=== PATIENT | female | born 1945 | race Caucasian/White ===

== ENCOUNTER → 2018-08-28 | Outpatient (CLI) | payer MEDICARE, OTHER ==
[~2018-08-28] MED LIST: ALBUIS; AMLO5; ASPI81CH; ASPI81EC PO; ATOR20 PO; ATOR40TA PO; Amlodipine Bes2.5 MG; CARV6.25 PO; CHOL10002; CHOL10002 PO; CLIN300 PO; CLON.1; CLON.1 PO; Carvedilol12.5 MG; Crutch1 EACH MISC; DOCU100; DOCU100 PO; DULO30; DULO60; DULO60 PO; FURO40; FURO40 PO; GABA300; GABA300 PO; HYDACE5325 PO; HYDR-86; HYDRA25 PO; LEVFLO500; LISI20 PO; LISI5 PO; NICO14TP TOP; Norco 5-325 Ta1 EACH PO; OXYACE5T; PRED20; Prednisone20 MG PO; TOPI25 PO; TOPI50; Zestril40 MG
[2018-08-28 18:22] LABS: Creatinine, Urine Random 21.2 mg/dL (27.00-270.00); Protein, Urine Random 8.9 mg/dL (0.0-11.9)
[2018-08-28 19:47] LABS: Bacteria Few /hpf; Red Blood Cells, Urine 0-2 /hpf (0-2); Squamous Epithelial Cells Few /hpf (Few); White Blood Cells, Urine 0-2 /hpf (0-5)
== END | disposition home or self-care (01) ==
LOC: LAB SHORT 17:09 → LAB 17:09
PROVIDERS: Internal Medicine
DX: N18.3 Chronic kidney disease, stage 3 (moderate) (principal)
CPT/HCPCS: 81015; 82570; 84156

== ENCOUNTER 2019-09-06 17:45 | Emergency (ER) | payer MEDICARE, OTHER ==
[~2019-09-06] VITALS: Ht 154.9 cm; Wt 68.0 kg
[~2019-09-06 17:45] MED LIST changes: -AMLO5; +AMLO5 PO; -ASPI81CH; +ASPI81CH PO
[2019-09-06 18:27] LABS: BASOPHILS ABSOLUTE AUTO 0.09 K/mm3 (0.00-0.23); BASOPHILS PERCENT AUTO 1 % (0-2); EOSINOPHILS ABSOLUTE AUTO 0.26 K/mm3 (0.00-0.68); EOSINOPHILS PERCENT AUTO 2 % (0-6); Hematocrit 41.1 % (33.0-51.0); Hemoglobin 13.1 g/dL (11.5-16.0); IMMATURE GRAN ABSOLUTE AUTO 0.11 K/mm3 (0.00-0.10); IMMATURE GRAN PERCENT AUTO 1 % (0-1); LYMPHOCYTES ABSOLUTE AUTO 2.19 K/mm3 (0.84-5.20); LYMPHOCYTES PERCENT AUTO 14 % (21-46); MONOCYTES ABSOLUTE AUTO 0.98 K/mm3 (0.16-1.47); MONOCYTES PERCENT AUTO 6 % (4-13); Mean Corpuscular HGB 31.2 pg (26.0-34.0); Mean Corpuscular HGB Conc 31.9 g/dL (31.5-36.5); Mean Corpuscular Volume 98 fL (80-100); NEUTROPHILS ABSOLUTE AUTO 12.04 K/mm3 (1.96-9.15); NEUTROPHILS PERCENT AUTO 77 % (41-73); Platelet Count 199 K/mm3 (150-400); RDW Coefficient Variation 13.9 % (11.7-14.2); RDW Standard Deviation 49.9 fL (35.1-46.3); White Blood Cell Count 15.67 K/mm3 (4.00-11.30)
[2019-09-06 18:44] LABS: Albumin, Blood 3.6 g/dL (3.4-5.0); Albumin/Globulin Ratio 0.9 (0.8-1.8); Bilirubin, Total 0.7 mg/dL (0.1-1.0); Bun/Creatinine Ratio 23.1 (12.0-20.0); Calcium, Blood 9.2 mg/dL (8.5-10.1); Creatinine, Blood 1.21 mg/dL (0.40-1.00); Globulin, Blood 4.1 g/dL (2.2-4.0); Potassium, Blood 4.8 mmol/L (3.5-5.5); Total Protein, Blood 7.7 g/dL (6.4-8.2)
[2019-09-06] MEDS ORDERED: DOXA1 PO (21:06)
[2019-09-06] MEDS ORDERED: RAMI5 PO (21:08)
[2019-09-06] MEDS ORDERED: ATEN50 PO (21:08)
[2019-09-06] MEDS ORDERED: Ventolin/Prove6.7 GM INH (21:10)
[2019-09-06] MEDS ORDERED: NICO21TP TOP (21:12)
[2019-09-06] MEDS ORDERED: LIVALO1 MG PO (21:12)
[2019-09-06] MEDS ORDERED: OXYC1TAB11 PO (21:13)
[2019-09-06] MEDS ORDERED: POTASSIUM CHLO10 MEQ PO (21:14)
[2019-09-06] MEDS ORDERED: SPIRONOLACTONE25 MG PO (21:14)
[2019-09-06] MEDS ORDERED: ZESTRIL40 M2 PO (21:14)
[2019-09-06] MEDS ORDERED: CLON.1 PO (21:15)
[2019-09-06] MEDS ORDERED: CARVEDILOL12.5 MG PO (21:15)
[2019-09-06] MEDS ORDERED: ATORVASTATIN CA40 M1 PO (21:15)
[2019-09-06] MEDS ORDERED: TOPI50 PO (21:15)
[2019-09-06] MEDS ORDERED: FUROSEMIDE20 MG PO (21:15)
[2019-09-06 22:26] LABS: Source, Urine Catheter
[2019-09-06 22:29] LABS: Appearance, Urine Clear (Clear); Bilirubin, Urine Neg (Neg); Blood, Urine 3+ (Neg); Color, Urine Yellow (P-Yellow); Glucose Qualitative, Urine Neg (Neg); Ketones, Urine Neg (Neg); Leukocyte Esterase, Urine 1+ (Neg); Nitrite, Urine Neg (Neg); Protein, Urine Neg (Neg); Urobilinogen, Urine NORM (Normal); pH, Urine 6.5 (5.0-8.0)
[2019-09-06 22:36] LABS: Bacteria Mod /hpf; Red Blood Cells, Urine 0-2 /hpf (0-2); Squamous Epithelial Cells Rare /hpf (Few)
[2019-09-06 23:08] LABS: Influenza A Negative (NEGATIVE); Influenza B Negative (NEGATIVE)
[2019-09-06] MEDS ORDERED: Augmentin 875-1 EACH PO (23:39)
== END 2019-09-06 23:55 | disposition home or self-care (01) ==
LOC: ER 17:45
PROVIDERS: Emergency Medicine; Physician Assistant
DX: R53.1 Weakness (principal); R50.9 Fever, unspecified; R05 Cough; I10 Essential (primary) hypertension; F17.200 Nicotine dependence, unspecified, uncomplicated; Z86.73 Personal history of transient ischemic attack (TIA), and cerebral infarction without residual deficits; Z88.2 Allergy status to sulfonamides; Z88.8 Allergy status to other drugs, medicaments and biological substances; Z79.899 Other long term (current) drug therapy; Z79.82 Long term (current) use of aspirin; Z79.51 Long term (current) use of inhaled steroids
CPT/HCPCS: 36415; 70450; 71046; 80053; 81001; 82947; 85025; 87086; 87804; 93005; 93010; 99285-25; A9270-GY; J7030

== ENCOUNTER → 2019-09-15 | Outpatient (CLI) | payer MEDICARE, OTHER ==
[~2019-09-15] MED LIST changes: +ATEN50 PO; +ATORVASTATIN CA40 M1 PO; +Augmentin 875-1 EACH PO; +CARVEDILOL12.5 MG PO; +DOXA1 PO; +FUROSEMIDE20 MG PO; +LIVALO1 MG PO; +NICO21TP TOP; +OXYC1TAB11 PO; +POTASSIUM CHLO10 MEQ PO; +RAMI5 PO; +SPIRONOLACTONE25 MG PO; +TOPI50 PO; +Ventolin/Prove6.7 GM INH; +ZESTRIL40 M2 PO
== END ==
LOC: LAB EV 11:20 → LAB SHORT 11:20
DX: R31.21 Asymptomatic microscopic hematuria (principal)
CPT/HCPCS: 87086

== ENCOUNTER → 2021-08-26 | Outpatient (CLI) | payer MEDICARE, OTHER ==
[2021-08-26 08:32] LABS: BASOPHILS ABSOLUTE AUTO 0.09 K/mm3 (0.00-0.23); BASOPHILS PERCENT AUTO 1 % (0-2); EOSINOPHILS ABSOLUTE AUTO 0.19 K/mm3 (0.00-0.68); EOSINOPHILS PERCENT AUTO 2 % (0-6); Hematocrit 34.6 % (33.0-51.0); Hemoglobin 11.2 g/dL (11.5-16.0); IMMATURE GRAN ABSOLUTE AUTO 0.06 K/mm3 (0.00-0.10); IMMATURE GRAN PERCENT AUTO 1 % (0-1); LYMPHOCYTES ABSOLUTE AUTO 2.69 K/mm3 (0.84-5.20); LYMPHOCYTES PERCENT AUTO 21 % (21-46); MONOCYTES ABSOLUTE AUTO 1.04 K/mm3 (0.16-1.47); MONOCYTES PERCENT AUTO 8 % (4-13); Mean Corpuscular HGB Conc 32.4 g/dL (31.5-36.5); Mean Corpuscular Volume 96 fL (80-100); Mean Platelet Volume 9.4 fL (9.1-12.4); NEUTROPHILS ABSOLUTE AUTO 8.68 K/mm3 (1.96-9.15); NEUTROPHILS PERCENT AUTO 68 % (41-73); Platelet Count 250 K/mm3 (150-400); RDW Coefficient Variation 13.3 % (11.7-14.2); RDW Standard Deviation 47.1 fL (35.1-46.3); Red Blood Cell Count 3.61 M/mm3 (3.80-5.20); White Blood Cell Count 12.75 K/mm3 (4.00-11.30)
[2021-08-26 08:49] LABS: Albumin, Blood 3.7 g/dL (3.4-5.0); Albumin/Globulin Ratio 1.2 (0.8-1.8); Bilirubin, Total 0.8 mg/dL (0.1-1.0); Bun/Creatinine Ratio 18.9 (12.0-20.0); Calcium, Blood 9.8 mg/dL (8.5-10.1); Creatinine, Blood 2.01 mg/dL (0.40-1.00); Globulin, Blood 3.2 g/dL (2.2-4.0); Total Protein, Blood 6.9 g/dL (6.4-8.2)
[2021-08-26 11:30] LABS: Bun/Creatinine Ratio 18.7 (12.0-20.0); Calcium, Blood 9.2 mg/dL (8.5-10.1); Creatinine, Blood 1.87 mg/dL (0.40-1.00); Potassium, Blood 4.6 mmol/L (3.5-5.5)
== END ==
LOC: LAB SHORT 08:28
PROVIDERS: General Practice
DX: R10.9 Unspecified abdominal pain (principal); R94.4 Abnormal results of kidney function studies
CPT/HCPCS: 80048; 80053; 82150; 85025; 87086

== ENCOUNTER → 2022-08-29 | Outpatient (CLI) | payer MEDICARE, OTHER ==
[2022-08-29 15:35] LABS: U Amphetamine Screen Not Detected; U Barbituate Screen Not Detected; U Benzodiazapine Screen Not Detected; U Buprenorphine Screen Not Detected; U Cannabinoids Screen Not Detected; U Cocaine Screen Not Detected; U Methadone Screen Not Detected; U Methamphetamine Screen Not Detected; U Opiates Screen Not Detected; U Oxycodone Screen DETECTED; U Phencyclidine Screen Not Detected; U Propoxyphene Screen Not Detected
== END | disposition home or self-care (01) ==
LOC: LAB 14:29 → LAB SHORT 14:29
PROVIDERS: Physical Medicine & Rehabilitation
DX: M54.16 Radiculopathy, lumbar region (principal); Z79.891 Long term (current) use of opiate analgesic

== ENCOUNTER → 2022-08-30 | Outpatient (CLI) | payer MEDICARE, OTHER ==
[2022-08-30 16:41] LABS: Calcium, Blood 10.6 mg/dL (8.5-10.1); Creatinine, Blood 2.17 mg/dL (0.40-1.00); Potassium, Blood 5.5 mmol/L (3.5-5.5)
== END | disposition home or self-care (01) ==
LOC: LAB SHORT 16:23
PROVIDERS: Physician Assistant
DX: N18.32 Chronic kidney disease, stage 3b (principal)
CPT/HCPCS: 80048

== ENCOUNTER 2023-11-04 20:24 | Inpatient (IN) | payer MEDICARE, OTHER ==
[~2023-11-04] VITALS: Ht 160 cm; Wt 71.3 kg
[2023-11-04 21:09] LABS: BASOPHILS ABSOLUTE AUTO 0.08 K/mm3 (0.00-0.23); BASOPHILS PERCENT AUTO 1 % (0-2); EOSINOPHILS ABSOLUTE AUTO 0.29 K/mm3 (0.00-0.68); EOSINOPHILS PERCENT AUTO 3 % (0-6); Hematocrit 40.7 % (33.0-51.0); IMMATURE GRAN ABSOLUTE AUTO 0.05 K/mm3 (0.00-0.10); IMMATURE GRAN PERCENT AUTO 1 % (0-1); LYMPHOCYTES ABSOLUTE AUTO 3.37 K/mm3 (0.84-5.20); LYMPHOCYTES PERCENT AUTO 36 % (21-46); MONOCYTES PERCENT AUTO 10 % (4-13); Mean Corpuscular HGB 29.6 pg (26.0-34.0); Mean Corpuscular HGB Conc 31.9 g/dL (31.5-36.5); Mean Corpuscular Volume 93 fL (80-100); NEUTROPHILS PERCENT AUTO 50 % (41-73); RDW Coefficient Variation 15.3 % (11.7-14.2); RDW Standard Deviation 52.3 fL (35.1-46.3); Red Blood Cell Count 4.39 M/mm3 (3.80-5.20); White Blood Cell Count 9.39 K/mm3 (4.00-11.30)
[2023-11-04 21:31] LABS: Influenza A, PCR NEGATIVE (NEGATIVE); Influenza B, PCR NEGATIVE (NEGATIVE); Resp Syncytial Virus, PCR NEGATIVE (NEGATIVE); SARS-Cov-2 (COVID-19) PCR, MMC NEGATIVE (NEGATIVE)
[2023-11-04 21:34] LABS: Albumin/Globulin Ratio 0.8 (0.8-1.8); Bilirubin, Total 0.4 mg/dL (0.1-1.0); Bun/Creatinine Ratio 12.2 (12.0-20.0); Calcium, Blood 8.6 mg/dL (8.5-10.1); Creatinine, Blood 1.89 mg/dL (0.40-1.00); Globulin, Blood 3.7 g/dL (2.2-4.0); Potassium, Blood 4.8 mmol/L (3.5-5.5); Total Protein, Blood 6.7 g/dL (6.4-8.2)
[2023-11-04] MEDS ORDERED: PredniSONE 20 MG Tab PO ONE (21:50)
[2023-11-04] MEDS ORDERED: Ipratropium/Albuterol SulF 2.5-0.5MG/3 ML Amp INH ONE (21:50)
[2023-11-04] MEDS ORDERED: Prednisone20 MG PO (22:03)
[2023-11-04] MEDS ORDERED: ALBU2.5V5 INH (22:03)
[2023-11-04] MEDS ORDERED: Aspirin 325 MG Tab PO ONE (23:20)
[2023-11-04] MEDS ORDERED: FentaNYL Citrate 50 MCG/ML 2 ML Injection IV PRN (23:45)
[2023-11-04] MEDS ORDERED: Ipratropium/Albuterol SulF 2.5-0.5MG/3 ML Amp INH PRN (23:45)
[2023-11-04] MEDS ORDERED: Nitroglycerin 0.4 MG SUBL SL PRN (23:45)
[2023-11-04] MEDS ORDERED: Ondansetron HCl 2 MG / ML 2ML Vial IV PRN (23:45)
[2023-11-04] MEDS ORDERED: Clopidogrel Bisulfate 75 MG Tab PO ONE (23:55)
[2023-11-04] MEDS ORDERED: Furosemide 10 MG/ML 4ML Vial IV ONE (23:55)
[2023-11-05] VITALS (10 sets, daily range): BP systolic 127–149; BP diastolic 79–126
[2023-11-05] MEDS ORDERED: Atorvastatin 40 MG Tab PO SCH
[2023-11-05] MEDS ORDERED: Azithromycin 500 MG in NS 250 ML IV SCH
[2023-11-05 00:30] LABS: Anti-Xa UFH, PHA Monitoring <0.10 IU/mL; International Normalized Ratio 0.96; Prothrombin Time Results 10.1 Sec (9.7-11.5)
[2023-11-05] MEDS ORDERED: Heparin Sodium,Porcine/0.5 NS 500 ML IV SCH (00:40)
[2023-11-05 05:15] LABS: Source, Urine Clean Catch
[2023-11-05 05:35] LABS: Appearance, Urine Clear (Clear); Bilirubin, Urine Neg (Neg); Blood, Urine 1+ (Neg); Color, Urine Yellow (P-Yellow); Glucose Qualitative, Urine Neg (Neg); Ketones, Urine Neg (Neg); Leukocyte Esterase, Urine 1+ (Neg); Nitrite, Urine Neg (Neg); Protein, Urine Neg (Neg); Specific Gravity, Urine 1.005 (1.003-1.022); Urobilinogen, Urine NORM (Normal)
[2023-11-05 06:12] LABS: Red Blood Cells, Urine 0-2 /hpf (0-2); Squamous Epithelial Cells Rare /hpf (Few)
[2023-11-05 06:13] LABS: Bacteria Rare /hpf
--- NOTE | 2023-11-05 06:30 | NUR ---
Admit/ End of shift note. Pt admitted to PCU 18 from ED. Pt was oriented to room and call light system. Pt walked from ED gurney to the bed after voiding and was notably SOB, O2 80% on RA. Pt was placed on 3L nc for sats to maintain >90%. Periwick is in place due to increase WOB when OOB. Periwick is in place, good urine output after lasix. Trops have continued to rise. Pt remains on hep gtt. Pt is able to make needs known, call light is within reach
[2023-11-05] MEDS ORDERED: Clopidogrel Bisulfate 75 MG Tab PO SCH (09:00)
[2023-11-05] MEDS ORDERED: Aspirin 81 MG Chew PO SCH (09:00)
[2023-11-05] MEDS ORDERED: MethylPREDNISolone Sod Succ 125 MG Vial IV SCH (09:00)
[2023-11-05] MEDS ORDERED: Torsemide 20 MG TAB PO SCH (09:00)
[2023-11-05 09:18] LABS: BASOPHILS ABSOLUTE AUTO 0.04 K/mm3 (0.00-0.23); BASOPHILS PERCENT AUTO 0 % (0-2); EOSINOPHILS PERCENT AUTO 0 % (0-6); Hematocrit 39.7 % (33.0-51.0); Hemoglobin 13.1 g/dL (11.5-16.0); IMMATURE GRAN ABSOLUTE AUTO 0.05 K/mm3 (0.00-0.10); IMMATURE GRAN PERCENT AUTO 1 % (0-1); LYMPHOCYTES ABSOLUTE AUTO 1.92 K/mm3 (0.84-5.20); LYMPHOCYTES PERCENT AUTO 19 % (21-46); MONOCYTES ABSOLUTE AUTO 0.48 K/mm3 (0.16-1.47); MONOCYTES PERCENT AUTO 5 % (4-13); Mean Corpuscular HGB 29.8 pg (26.0-34.0); Mean Corpuscular Volume 90 fL (80-100); Mean Platelet Volume 9.8 fL (9.1-12.4); NEUTROPHILS PERCENT AUTO 75 % (41-73); Platelet Count 213 K/mm3 (150-400); RDW Coefficient Variation 15.2 % (11.7-14.2); RDW Standard Deviation 50.4 fL (35.1-46.3); Red Blood Cell Count 4.39 M/mm3 (3.80-5.20); White Blood Cell Count 9.89 K/mm3 (4.00-11.30)
[2023-11-05 09:37] LABS: Albumin, Blood 3.1 g/dL (3.4-5.0); Albumin/Globulin Ratio 0.8 (0.8-1.8); Bilirubin, Total 0.7 mg/dL (0.1-1.0); Bun/Creatinine Ratio 15.5 (12.0-20.0); Calcium, Blood 9.2 mg/dL (8.5-10.1); Creatinine, Blood 1.68 mg/dL (0.40-1.00); Globulin, Blood 3.9 g/dL (2.2-4.0)
[2023-11-05] MEDS ORDERED: Dose Adjust by Pharmacy XX STA ×3 (09:41→23:53)
--- NOTE | 2023-11-05 09:50 | NUR ---
AM NOTE this rn assumed care at 0700. vital signs stable. spo2 >90% on 3l nc. baseline is room air. patient is alert and oriented x4. perrla neuro is intact. patient is able to make needs known and uses call light appropriately. denies chest pain/pressure or shortness of breath. reports pain rated at a 7 in her back. received pain medication per emar and upon reassessment pain rated at 6 and patient states "continuing to go down". see shift assessment for further detials. md perry and md osborn in to see patient this am and discussed plan of care. patient to follow up with md as an outpatient when discharged and current copd exacberation improves. see orders and md perry or anurag note for further detials. patient , keke, in room and this rn provided with an update and wrote information on the board. plan of care is up to date at this time.
--- NOTE | 2023-11-05 11:52 | NUR ---
transfer of care/shift summary patient neuro remains unchanged. vital signs stable. tele sinus rhythm in the 80s. spo2 >94% on 2l nc. titrating back to patient baseline, room air as respiratory status allows. purewick remains in place. patient did not want to eat lunch and is saved in the pantry, patient aware of this. no acute changes. see previous notes. plan of care remains up to date.
--- NOTE | 2023-11-05 18:42 | NUR ---
PT SUMMARY; ASSUMED CARE AT 1215; REPORT RECEIVED FROM ILDEFONSO BAUTISTA RN AT BEDSIDE DURING REPORT. NO ACUTE CHANGE SINCE TRANSFER OF CARE. PT HAS BEEN IN BED GOT UP IN THE COMMODE ONCE TO VOID, SBA FOR TRANSFERS. PT REMAINS ON 2L OF O2 VIA NASAL CANNULA. BREATHING TX PER RT. HRR SR 80'S, SBP 140'S, AFEBRILE. PT RECEIVED A BED BATH AFTER LUNCH TIME. PT REFUSED LUNCH DAUGHTER BROUGHT SOME BURGER FOR PT AND WAS ABLE TO FINISH THE WHOLE BURGER. NO OTHER ISSUES REPORTED DENIES CHEST ALEJANDRINA/PRESSURE. CALL LIGHTS IN REACH WILL REPORT TO ONCOMING SHIFT
[2023-11-06 04:24] VITALS: BP 133/73
[2023-11-06] MEDS ORDERED: Pantoprazole Sodium 20 MG Tab PO SCH (06:00)
--- NOTE | 2023-11-06 06:34 | NUR ---
End of shift note. Shortly after the 2100 IV ABX, Pt called staff into the room reporting her arm was painful. IV site had infiltrated. Noted redness and swelling to site. Arm was elevated and a warm compress was applied. Pharmacy was consulted and had no additional information for treatment. Pt continued to struggle with pain at site, IV pain meds given x2. was called to come sit at bedside at the request of Pt. Despite the best efforts of staff, Pt was very uncomfortable and did not tolerate most comforting interventions. brought in home oxycodone, significant amount of education given to and Pt about not taking home medication. After a lengthy visit with her , Pt was able to relax and was in less pain. Site is much improved this morning. Pt has rested well after IV issue. Pt has been able to be on room air all shift. Pt was OOB once to the bathroom for BM but has otherwise used the periwick. Pt was encouraged to move more today. Hep gtt continues to infuse. Rate decreased per pharmacy management. Pt refused AM weight, did not want to remove extra pillows/blankets from the bed. Will ask next shift to attempt with next repositioning. Pt is able to make needs known, call light is within reach.
[2023-11-06 07:42] VITALS: BP 143/73
--- NOTE | 2023-11-06 09:57 | NUR ---
AM NOTE: PATIENT ALERT AND ORIENTED. SHORT TERM MEMORY ISSUES WITH HISTORY OF CVA. PERRLA, WEARING GLASSES. DENIES NUMBNESS/TINGLING. FOLLOWING ALL COMMANDS. UP WITH OT THIS AM TO BATHROOM AND CHAIR. PT IN ROOM AT THIS TIME. TELE SHOWING SR WITH HR 80'S. DENIES CHEST PAIN/PRESSURE/PALPITATIONS. SBP 140'S. EDEMA NOTED TO BLE, WORSE IN LEFT (PATIENT STATES THIS IS HER NORM). PPP. IV HEPARIN INFUSING PER EMAR. SCATTERED BRUISING NOTED. ON ROOM AIR SATING 92-94%. DENIES SOB. OCCASIONAL NONPRODUCTIVE COUGH NOTED. SPUTUM SAMPLE NEEDED. LUNGS SOUNDING COARSE WITH EXPIRATORY WHEEZE THIS AM. DENIES USING OXYGEN OR CPAP/BIPAP AT HOME. EVEN AND UNLABORED RESPIRATIONS. BOWEL TONES PRESENT IN ALL 4 QUADRANTS. DENIES ABDOMINAL PAIN/NAUSEA. BREAKFAST EATEN THIS AM WITH NO ISSUES. UP TO BATHROOM THIS AM. USED PURWICK OVERNIGHT. ATTENDS IN PLACE. AT BEDSIDE. PHYSICAL THERAPY IN ROOM AT THIS TIME.
[2023-11-06 11:12] VITALS: BP 135/93
[2023-11-06] MEDS ORDERED: Temazepam 15 MG Cap PO PRN (12:15)
--- NOTE | 2023-11-06 12:21 | NUR ---
DR. SIDDIQI BY TO SEE PATIENT, THIS RN AT BEDSIDE FOR PROVIDER ROUNDING. PATIENT TEARFUL SHE IS NOT DISCHARGING TODAY BUT UNDERSTANDING. ORDERS FOR [address] THIS RN AND PATIENT PLACED CALL TO [facility] TO UPDATE. AFTERNOON VITALS STABLE. PATIENT REFUSED LUNCH. TALKING TO ON PHONE AT THIS TIME.
[2023-11-06 13:00] LABS: Hematocrit 37.4 % (33.0-51.0); Hemoglobin 12.3 g/dL (11.5-16.0); Mean Platelet Volume 10.2 fL (9.1-12.4); Platelet Count 247 K/mm3 (150-400)
[2023-11-06] MEDS ORDERED: Dose Adjust by Pharmacy XX STA (13:29)
[2023-11-06 15:48] VITALS: BP 151/88
--- NOTE | 2023-11-06 17:37 | NUR ---
SHIFT SUMMARY: NO ACUTE CHANGES. PATIENT VITALS REMAIN STABLE THROUGHOUT SHIFT. PATIENT CONTINUES TO DENY ALL PAIN. UP TO BSC/BATHROOM WITH ONE PERSON ASSIST AND FWW. AND DAUGHTER AT BEDSIDE TODAY AND UPDATED BY THIS RN. TELE CONTINUES TO SHOW SR. HEPARIN GTT CONTINUES TO INFUSE PER EMAR. ON ROOM AIR. EATING DINNER AT THIS TIME. DENIES NEEDS. CALL LIGHT IN REACH.
[2023-11-06 20:22] VITALS: BP 150/99
[2023-11-06 23:37] VITALS: BP 141/78
[2023-11-07 04:02] VITALS: BP 154/95
--- NOTE | 2023-11-07 04:53 | NUR ---
SHIFT SUMMARY PT A&O X4. ABLE TO MAKE NEEDS KNOWN. BP STABLE. SR WITH HR 80-90'S. ON RA WITH SPO2 >92%. AFEBRILE. HEP GTT INFUSING PER EMAR. UP TO BSC WITH SBA WITH FWW. PT IS ABLE TO REPOSITION SELF IN BED INDEPENENTLY. BED IN LOWEST POSITION AND CALL LIGHT WITHIN REACH. THIS RN WILL REPORT TO ONCOMING DAYSHIFT RN.
[2023-11-07 05:33] LABS: BASOPHILS ABSOLUTE AUTO 0.02 K/mm3 (0.00-0.23); BASOPHILS PERCENT AUTO 0 % (0-2); EOSINOPHILS PERCENT AUTO 0 % (0-6); Hematocrit 33.7 % (33.0-51.0); Hemoglobin 11.1 g/dL (11.5-16.0); IMMATURE GRAN ABSOLUTE AUTO 0.27 K/mm3 (0.00-0.10); IMMATURE GRAN PERCENT AUTO 1 % (0-1); LYMPHOCYTES ABSOLUTE AUTO 2.62 K/mm3 (0.84-5.20); LYMPHOCYTES PERCENT AUTO 14 % (21-46); MONOCYTES ABSOLUTE AUTO 1.02 K/mm3 (0.16-1.47); MONOCYTES PERCENT AUTO 5 % (4-13); Mean Corpuscular HGB 29.8 pg (26.0-34.0); Mean Corpuscular HGB Conc 32.9 g/dL (31.5-36.5); Mean Corpuscular Volume 90 fL (80-100); Mean Platelet Volume 10.3 fL (9.1-12.4); NEUTROPHILS ABSOLUTE AUTO 15.45 K/mm3 (1.96-9.15); NEUTROPHILS PERCENT AUTO 80 % (41-73); Platelet Count 221 K/mm3 (150-400); RDW Coefficient Variation 15.6 % (11.7-14.2); RDW Standard Deviation 51.4 fL (35.1-46.3); Red Blood Cell Count 3.73 M/mm3 (3.80-5.20); White Blood Cell Count 19.38 K/mm3 (4.00-11.30)
[2023-11-07 05:49] LABS: Albumin/Globulin Ratio 0.9 (0.8-1.8); Bilirubin, Total 0.5 mg/dL (0.1-1.0); Bun/Creatinine Ratio 59.4 (12.0-20.0); Calcium, Blood 9.2 mg/dL (8.5-10.1); Creatinine, Blood 1.43 mg/dL (0.40-1.00); Globulin, Blood 3.3 g/dL (2.2-4.0); Potassium, Blood 4.5 mmol/L (3.5-5.5); Total Protein, Blood 6.3 g/dL (6.4-8.2)
[2023-11-07] MEDS ORDERED: Dose Adjust by Pharmacy XX STA (05:56)
--- NOTE | 2023-11-07 06:51 | NUR ---
HEP GTT DC'D PER MD ORDER.
[2023-11-07 07:24] VITALS: BP 142/92
[2023-11-07] MEDS ORDERED: Enoxaparin 40 MG/0.4 ML SYR SC SCH (09:00)
[2023-11-07] MEDS ORDERED: PredniSONE 20 MG Tab PO SCH (09:00)
[2023-11-07] MEDS ORDERED: Empagliflozin 10 MG TAB PO SCH (09:00)
[2023-11-07] MEDS ORDERED: Metoprolol Succinate 25 MG TABCR PO SCH (09:00)
[2023-11-07] MEDS ORDERED: CLOP75 PO (12:38)
[2023-11-07] MEDS ORDERED: TORSE20 PO (12:38)
[2023-11-07] MEDS ORDERED: NITR.4SL SL (12:41)
[2023-11-07] MEDS ORDERED: Prednisone10 MG PO (12:42)
[2023-11-07] MEDS ORDERED: TOPROL XL50 MG PO (12:42)
--- NOTE | 2023-11-07 13:26 | NUR ---
DISCHARGE NOTE this rn went over discharge education with the patient and patient . this rn went over new medications and stopped medications with the patient and her . patient and patient verbalized understanding. given printed paper instructions of what medications to stop and what medications to continue and educational paper work on new medications. patient educated on follow up appointments. patient and verbalized understanding. patient left in no distress with all personal belongings and discharg education packet.
== END 2023-11-07 13:16 | disposition home health service (06) | DRG 189 ==
LOC: ER 20:24 → PCU 20:25 → ERHOLD 20:25 → PCU 11-05 00:58
PROVIDERS: Emergency Medicine; Internal Medicine; Specialist; Student in an Organized Health Care Education/Training Program; ADMIT Internal Medicine
DX: J96.21 Acute and chronic respiratory failure with hypoxia (principal); I21.A1 Myocardial infarction type 2; J44.1 Chronic obstructive pulmonary disease with (acute) exacerbation; I13.0 Hypertensive heart and chronic kidney disease with heart failure and stage 1 through stage 4 chronic kidney disease, or unspecified chronic kidney disease; M41.9 Scoliosis, unspecified; F17.210 Nicotine dependence, cigarettes, uncomplicated; I50.9 Heart failure, unspecified; N18.9 Chronic kidney disease, unspecified; I35.0 Nonrheumatic aortic (valve) stenosis; E78.5 Hyperlipidemia, unspecified; E87.5 Hyperkalemia; Z86.73 Personal history of transient ischemic attack (TIA), and cerebral infarction without residual deficits; Z71.6 Tobacco abuse counseling; Z79.82 Long term (current) use of aspirin; Z79.899 Other long term (current) drug therapy
CPT/HCPCS: 0241U; 36415; 71045; 80053; 81001; 83880; 84484; 85014; 85018; 85025; 85049; 85520; 85610; 85730; 87086; 93306; 94640; 94664; 94762; 96365; 96366; 96374; 96375; 96376; 97116; 97162; 97165; 97530; 97535; 99285-25; A9270; C9113; G0378; J0456; J1644; J1650; J1940; J2405; J2930; J3010; J7050; J7512

== ENCOUNTER 2024-01-23 03:57 | Day surgery (SDC) | payer MEDICARE, OTHER ==
[~2024-01-23 03:57] MED LIST changes: +ALBU2.5V5 INH; +AMIT25 PO; +CATAPRES0.1 MG PO; +CEPH500 PO; +CLOP75 PO; +JARDIANCE10 MG PO; +MIRALAX17 GM PO; +NITR.4SL SL; +OXYC10TA19 PO; +OXYC5 PO; +Prednisone10 MG PO; +SENN187 PO; +SERT50 PO; +TOPROL XL50 MG PO; +TORSE20 PO; +VENL37.5ER PO
== END 2024-01-23 22:43 | disposition home or self-care (01) ==
LOC: WOUND 03:57
DX: T81.31XD Disruption of external operation (surgical) wound, not elsewhere classified, subsequent encounter (principal); L97.822 Non-pressure chronic ulcer of other part of left lower leg with fat layer exposed; I87.2 Venous insufficiency (chronic) (peripheral); I73.9 Peripheral vascular disease, unspecified; Y83.8 Other surgical procedures as the cause of abnormal reaction of the patient, or of later complication, without mention of misadventure at the time of the procedure
CPT/HCPCS: A6213; G0463

== ENCOUNTER 2024-01-30 03:17 | Day surgery (SDC) | payer MEDICARE, OTHER | END 2024-01-30 23:05 | disposition home or self-care (01) | LOC: WOUND 03:17 | DX: L97.822 Non-pressure chronic ulcer of other part of left lower leg with fat layer exposed (principal); I87.2 Venous insufficiency (chronic) (peripheral); I73.9 Peripheral vascular disease, unspecified | CPT/HCPCS: G0463 ==

== ENCOUNTER 2024-02-06 02:16 | Day surgery (SDC) | payer MEDICARE, OTHER | END 2024-02-06 22:57 | disposition home or self-care (01) | LOC: WOUND 02:16 | DX: T81.31XD Disruption of external operation (surgical) wound, not elsewhere classified, subsequent encounter (principal); L97.822 Non-pressure chronic ulcer of other part of left lower leg with fat layer exposed; I87.2 Venous insufficiency (chronic) (peripheral); I73.9 Peripheral vascular disease, unspecified; Y83.8 Other surgical procedures as the cause of abnormal reaction of the patient, or of later complication, without mention of misadventure at the time of the procedure | CPT/HCPCS: G0463 ==

== ENCOUNTER 2024-02-13 03:19 | Day surgery (SDC) | payer MEDICARE, OTHER | END 2024-02-15 22:49 | disposition home or self-care (01) | LOC: WOUND 03:19 | DX: L97.822 Non-pressure chronic ulcer of other part of left lower leg with fat layer exposed (principal); I87.2 Venous insufficiency (chronic) (peripheral); I73.9 Peripheral vascular disease, unspecified | CPT/HCPCS: G0463 ==